=== PATIENT | male | born 1990 ===

== ENCOUNTER 2017-07-29 12:14 | Emergency (ER) | payer OTHER ==
[2017-07-29 12:53] VITALS: BMI 25.8
--- NOTE | 2017-07-29 13:09 | ED PDOC ---
Arrival/HPI - General Chief Complaint: Abnormal Skin Integrity Time Seen by Provider: 07/29/17 12:24 Historian: Patient - History of Present Illness Narrative History of Present Illness (Text): 07/29/17 13:05 27yr old male presents today with pruritic rash to chest, abdomen, face and arms and legs. pt states he developed rash to posterior left knee about 1 month ago and then since thursday has developed worsening puritic rash to chest, stomach and back, now spreading to face, arms and legs. denies cp or sob. no new foods, soaps, lotions, detergents. denies sick contacts. denies difficulty breathing or swallowing. no dizziness or weakness. no medications taken at home. no blurred vision. no other complaints. Symptom Onset: Gradual Symptom Course: Worsening Quality: Other (pruritis) Past Medical History - Provider Review Nursing Documentation Reviewed: Yes - Travel History Have you recently traveled outside [place] w/in the past 3 mons?: No - Infectious Disease Hx of Infectious Diseases: None - Tetanus Immunization Tetanus Immunization: Unknown - Psychiatric Hx Substance Use: No - Anesthesia Hx Anesthesia: No Family/Social History - Physician Review Nursing Documentation Reviewed: Yes Family/Social History: Unknown Family HX Smoking Status: Never Smoked Hx Alcohol Use: Yes Frequency of alcohol use: Socially Hx Substance Use: No Allergies/Home Meds Allergies/Adverse Reactions: Allergies No Known Allergies Allergy (Verified 07/29/17 13:00) Review of Systems - Review of Systems Constitutional: absent: Fatigue, Fevers ENT: absent: Sore Throat, Sinus Congestion Respiratory: absent: SOB, Cough Cardiovascular: absent: Chest Pain, Palpitations Gastrointestinal: absent: Abdominal Pain, Nausea, Vomiting Genitourinary Male: absent: Dysuria, Frequency Musculoskeletal: absent: Arthralgias, Back Pain, Neck Pain Skin: Rash, Pruritis Neurological: absent: Headache, Dizziness Psychiatric: absent: Anxiety, Depression Physical Exam Vital Signs Reviewed: Yes Vital Signs Temp Pulse Resp BP Pulse Ox 07/29/17 12:55 98.3 F 85 18 128/73 100 Temperature: Afebrile Blood Pressure: Normal Pulse: Regular Respiratory Rate: Normal Appearance: Positive for: Well-Appearing, Non-Toxic, Comfortable Pain Distress: None Mental Status: Positive for: Alert and Oriented X 3 - Systems Exam Head: Present: Atraumatic, Other (there is a raised erythematous papules rash noted in the right periorbital region. non tender; no edema. ) Pupils: Present: PERRL Extroacular Muscles: Present: EOMI Conjunctiva: Present: Normal Mouth: Present: Moist Mucous Membranes Pharnyx: Present: Normal. No: EXUDATE Nose (External): Present: Atraumatic Nose (Internal): Present: Normal Inspection Neck: Present: Normal Range of Motion, Trachea Midline Respiratory/Chest: Present: Clear to Auscultation Cardiovascular: Present: Regular Rate and Rhythm Abdomen: No: Tenderness Upper Extremity: Present: Normal ROM Lower Extremity: Present: Normal ROM Neurological: Present: GCS=15, Speech Normal Skin: Present: Warm, Dry, Rashes (multiple erythematous papules and raised plaques noted to chest, abdomen, back. few sporatic erythematous plaques noted to arms bilaterally. no rash on palms or soles. erythematous plaques noted to groin and thighs bilaterally. there is a large scaling erythematous plaque noted to the left posterior knee fossa. ), Normal Color Psychiatric: Present: Alert, Oriented x 3 Medical Decision Making ED Course and Treatment: 07/29/17 13:13 Patient is nontoxic well-appearing no distress stable vital signs with a diffuse rash to the head, Chest, abdomen, back upper and lower extremity sparing the palms and soles Benadryl and prednisone given by mouth I discussed findings in depth with the patient and family and stressed the importance of follow-up with a children's ministry director within the next 2 days. Patient verbalizes understanding of discharge instructions and need for immediate followup. all aspects of this case were discussed the attending of record. impression; rash Benadryl every 6 hours as needed for itch Prednisone once daily x4 days Pepcid one tablet daily Follow up with the primary care physician within the next 2 days. Follow up with the children's ministry director within the next 2 days. Return if symptoms worsen persist or if new symptoms develop: Shortness of breath, feeling of throat closing, difficulty speaking or any other concerning symptoms develop - Medication Orders Current Medication Orders: Discontinued Medications Diphenhydramine HCl (Benadryl) 25 mg PO ONCE ONE Stop: 07/29/17 13:01 Prednisone (Prednisone Tab) 60 mg PO STAT ONE Stop: 07/29/17 13:01 Disposition/Present on Arrival - Present on Arrival Any Indicators Present on Arrival: No History of DVT/PE: No History of Uncontrolled Diabetes: No Urinary Catheter: No History of Decub. Ulcer: No History Surgical Site Infection Following: None - Disposition Have Diagnosis and Disposition been Completed?: Yes Diagnosis: Rash Disposition: HOME/ ROUTINE Disposition Time: 14:14 Patient Plan: Discharge Condition: GOOD Discharge Instructions (ExitCare): Acute Rash (ED) Print Language: BERMUDIAN Additional Instructions: Benadryl every 6 hours as needed for itch Prednisone once daily x4 days Pepcid one tablet daily Follow up with the primary care physician within the next 2 days. Follow up with the children's ministry director within the next 2 days. Return if symptoms worsen persist or if new symptoms develop: Shortness of breath, feeling of throat closing, difficulty speaking or any other concerning symptoms develop Prescriptions: DiphenhydrAMINE [Benadryl] 25 mg PO Q6H #20 cap predniSONE [predniSONE Tab] 3 tab PO DAILY #12 tab Referrals: [facility] [Primary Care Provider] - Follow up with primary Braden Rollins MD [Staff Provider] - Follow up with primary Sonia Sullivan MD [Staff Provider] - Follow up with primary Jose Leon MD [Staff Provider] - Follow up with primary [facility] [place] [Outside] - Follow up with primary Forms: [employer] (Kazakh), WORK NOTE
[2017-07-29 13:18] VITALS: BP 111/73; PULSE 77; RESP 17; TEMP 98.1; O2SAT 99
== END 2017-07-29 14:33 | disposition home or self-care (01) ==
LOC: EDBD → ED 12:14
DX: R21 Rash and other nonspecific skin eruption (principal)